=== PATIENT | female | born 1980 | race Caucasian/White ===

== ENCOUNTER 2017-09-07 05:38 | Emergency (ER) | payer OTHER ==
[~2017-09-07] VITALS: Ht 170.2 cm; Wt 86.7 kg
[~2017-09-07 05:38] MED LIST: BACTRIM,SEPT1 TABLET PO; BYSTOLIC10 MG PO; DITROPAN XL5 MG PO; NAPROSYN500 MG PO; NORCO 5/3251 TABLET PO; TOPROL XL100 MG PO; ZOFRAN ODT4 MG PO; ZOFRAN4 MG PO
[2017-09-07 05:41] VITALS: BP 120/72
== END 2017-09-07 07:44 | disposition home or self-care (01) ==
LOC: EME 05:38
DX: F41.9 Anxiety disorder, unspecified (principal); Z85.528 Personal history of other malignant neoplasm of kidney; Z90.5 Acquired absence of kidney; Z90.49 Acquired absence of other specified parts of digestive tract; Z88.5 Allergy status to narcotic agent; Z88.1 Allergy status to other antibiotic agents
CPT/HCPCS: 99281; 99284

== ENCOUNTER 2017-09-18 14:27 | Emergency (ER) | payer OTHER ==
[~2017-09-18] VITALS: Ht 170.2 cm; Wt 89.9 kg
[2017-09-18 15:03] LABS: HEMATOCRIT 39.7 % (36.0-46.0); HEMOGLOBIN 13.6 G/DL (11.9-15.5); MCH 29.1 PG (29.0-34.0); MCHC 34.3 G/DL (30.0-36.0); PLATELET COUNT 240 K/uL (156-360); RBC DIS.WIDTH-CV 12.5 % (11.8-14.6); RBC DIS.WIDTH-SD 38.1 % (39-53); RED BLOOD COUNT 4.67 M/uL (3.80-5.20); WHITE BLOOD COUNT 8.4 K/uL (4.1-10.2)
[2017-09-18 15:10] LABS: ALBUMIN 4.4 g/dL (3.2-4.8); CHLORIDE 109 mEq/L (99-109); POTASSIUM 3.9 mEq/L (3.7-5.4); SODIUM 141 mEq/L (136-147)
[2017-09-18 15:13] LABS: GLUCOSE 91 mg/dL (70-99); TOTAL PROTEIN 7.2 g/dL (6.4-8.3)
[2017-09-18 15:14] LABS: TOTAL BILIRUBIN 0.4 mg/dL (0.0-1.0)
[2017-09-18 15:16] LABS: ALKALINE PHOSPHATASE 80 IU/L (3-129); GFR ESTIMATE (CALCULATED) > 59 mL/min/
[2017-09-18 15:17] LABS: UREA NITROGEN (BUN) 12 mg/dL (9-23)
[2017-09-18 15:18] LABS: AST (GOT) 16 IU/L (2-34)
[2017-09-18 15:19] LABS: ALT (GPT) 10 IU/L (3-49)
[2017-09-18 15:22] LABS: TROP-I INTERPRETATION NEGATIVE; TROPONIN-I < 0.01 ng/mL (0.0-0.30)
[2017-09-18 15:48] LABS: APPEARANCE CLEAR ((CLEAR)); BILIRUBIN NEGATIVE; BLOOD NEGATIVE; COLOR STRAW ((YELLOW)); GLUCOSE (STRIP) NEGATIVE; KETONES NEGATIVE; LEUKOCYTES TRACE; NITRITE NEGATIVE; PROTEIN (STRIP) NEGATIVE; SPECIFIC GRAVITY 1.005 (1.000-1.030); UROBILINOGEN 0.2 MG/DL (0.2-1.0)
[2017-09-18 16:03] LABS: BACTERIA NONE SEEN /HPF; EPITHELIAL CELLS RARE /HPF; MUCUS NONE SEEN /LPF; RED BLOOD CELLS 0-5 /HPF (0-5); UCUL ADDED? NO; WHITE BLOOD CELLS 0-5 /HPF (0-5)
[2017-09-18 16:34] VITALS: BP 132/96
== END 2017-09-18 16:37 | disposition home or self-care (01) ==
LOC: EME 14:27
PROVIDERS: Nurse Practitioner Family
DX: R55 Syncope and collapse (principal); R42 Dizziness and giddiness; I49.8 Other specified cardiac arrhythmias; F41.0 Panic disorder [episodic paroxysmal anxiety]; R51 Headache; I49.3 Ventricular premature depolarization; Z85.528 Personal history of other malignant neoplasm of kidney; Z90.5 Acquired absence of kidney
CPT/HCPCS: 71046; 80053; 81003; 84484; 85027; 93005; 99281; 99284; J7030